=== PATIENT | male | born 1975 | race Caucasian/White ===

== ENCOUNTER → 2016-06-10 | Outpatient (CLI) | payer OTHER, BC ==
--- NOTE | 2016-06-10 15:47 | CR ---
EXAMINATION: Right knee HISTORY: Pain COMPARISON: 05/17/2016 TECHNIQUE: 4 views FINDINGS/IMPRESSION: There is no acute osseous abnormality, dislocation, or fracture identified. Bon e mineralization and joint spaces appear normal. No soft tissue swelling or joint effusion.
== END ==
LOC: MW.CHORTHO 07:45
PROVIDERS: ATTEND Physician Assistant
DX: M25.561 Pain in right knee (principal)
CPT/HCPCS: 73564-26-RT; 73564-RT

== ENCOUNTER 2016-08-12 07:47 | Day surgery (SDC) | payer OTHER ==
[~2016-08-12 07:47] MED LIST: Lactated Ringers 1,000 ML IV SCH; Lidocaine 1% 50 ML MDV ONE
[2016-08-12] MEDS ORDERED: ceFAZolin 2 GM in Premix Bag 1 BAG IV SCH (08:00)
[2016-08-12] MEDS ORDERED: Acetaminophen/HYDROcodone 325-5 MG Tab PO PRN (09:00)
[2016-08-12] MEDS ORDERED: Propofol 200 MG/20 ML SDV ONE (09:05)
[2016-08-12] MEDS ORDERED: Lidocaine 2% 5 ML SDV ONE (09:05)
[2016-08-12] MEDS ORDERED: fentaNYL 100 MCG/2 ML SDV ONE ×2 (09:06→10:05)
[2016-08-12] MEDS ORDERED: Midazolam 1 MG/ML 2 ML SDV ONE (09:06)
--- NOTE | 2016-08-12 09:15 | PCM.PREANE ---
Preanesthetic Assessment - Anesthesia/Transfusion/Family Hx Anesthesia History: No Prior Anesthesia Family History of Anesthesia Reaction: No Transfusion History: No Prior Transfusion(s) Intubation History: Unknown - Review of Systems General: No Symptoms Pulmonary: No Symptoms Cardiovascular: No Symptoms Gastrointestinal: No symptoms Neurological: No Symptoms Other: Reports: None - Physical Assessment NPO Status Date: 08/11/16 NPO Status Time: 23:45 O2 Sat by Pulse Oximetry: 94 Respiratory Rate: 16 Vital Signs: Last Vital Signs Temp 36.6 C 08/12/16 08:27 Pulse 82 08/12/16 08:27 Resp 16 08/12/16 08:27 BP 120/87 08/12/16 08:27 Pulse Ox 94 L 08/12/16 08:27 Height: 1.83 m Weight: 102.058 kg ASA Class: 2 Mental Status: Alert & Oriented x3 Airway Class: Mallampati = 2 Dentition: Reports: Normal Dentition Thyro-Mental Finger Breadths: 3 Mouth Opening Finger Breadths: 3 ROM/Head Extension: Full Lungs: Clear to auscultation, Normal respiratory effort Cardiovascular: Regular Rate, Regular Rhythm - Allergies Allergies/Adverse Reactions: Allergies Allergy/AdvReac Type Severity Reaction Status Date / Time diclofenac Allergy Hives Verified 08/08/16 09:35 - Blood Blood Available: No - Anesthesia Plan Pre-Op Medication Ordered: None - Acknowledgements Anesthesia Type Planned: General Anesthesia Pt an Appropriate Candidate for the Planned Anesthesia: Yes Alternatives and Risks of Anesthesia Discussed w Pt/Guardian: Yes Pt/Guardian Understands and Agrees with Anesthesia Plan: Yes PreAnesthesia Questionnaire - Past Health History Medical/Surgical History: Denies Medical/Surgical History Gastrointestinal History: Reports: Other (see below) Other Gastrointestinal History: occasional heartburn Endocrine/Metabolic History: Reports: Obesity/BMI 30+ - Past Surgical History Head Surgeries/Procedures: Reports: None - SUBSTANCE USE Smoking Status *Q: Current Every Day Smoker (04/10 ppd) Tobacco Use Within Last Twelve Months: Cigarettes, Snuff/Dip Recreational Drug Use History: No - HOME MEDS Home Medications: Home Meds . [No Known Home Meds] 08/08/16 [History] - CURRENT (IN HOUSE) MEDS Current Meds: Current Medications Hydrocodone Bitart/Acetaminophen (Engelhard 325-5 Mg) 1 - 2 tab PO Q4H PRN PRN Reason: Pain Lactated Ringer's (Ringers, Lactated) 1,000 mls @ 100 mls/hr IV ASDIRECTED TYLER Last Admin: 08/12/16 08:15 Dose: 100 mls/hr Cefazolin Sodium/Dextrose 2 gm (/ Premix) 50 mls @ 100 mls/hr IV ONCALL TYLER Discontinued Medications Fentanyl (Sublimaze) Confirm Administered Dose 100 mcg .ROUTE .STK-MED ONE Stop: 08/12/16 09:07 Lidocaine (Xylocaine-Mpf 2%) Confirm Administered Dose 5 ml .ROUTE .STK-MED ONE Stop: 08/12/16 09:06 Lidocaine HCl (Xylocaine 1%) Confirm Administered Dose 50 ml .ROUTE .STK-MED ONE Stop: 08/12/16 07:26 Midazolam HCl (Versed 1 Mg/Ml) Confirm Administered Dose 2 mg .ROUTE .STK-MED ONE Stop: 08/12/16 09:07 Propofol (Diprivan 20 Ml) Confirm Administered Dose 200 mg .ROUTE .STK-MED ONE Stop: 08/12/16 09:06
[2016-08-12] MEDS ORDERED: Ondansetron 4 MG/2 ML SDV ONE (10:08)
[2016-08-12] MEDS ORDERED: Ketorolac 30 MG/ML SDV ONE (10:08)
[2016-08-12] MEDS ORDERED: fentaNYL 100 MCG/2 ML SDV IVPUSH PRN (10:13)
--- NOTE | 2016-08-12 10:45 | PCM.OPNOTE ---
- General Post-Op/Procedure Note Date of Surgery/Procedure: 08/12/16 Operative Procedure(s): R knee scope with limited synovectomy Post-Op Diagnosis: R knee fat pad impingement Primary Surgeon: Rosette Rick EBL in mLs: 5 Condition: Good Free Text/Narrative:: tt=9 min #[id number]
--- NOTE | 2016-08-12 11:02 | PCM.POSTAN ---
POST ANESTHESIA ASSESSMENT - MENTAL STATUS Mental Status: alert, oriented - RESPIRATORY Respiratory Status: respiratory rate WNL, airway patent, O2 saturation stable - CARDIOVASCULAR CV Status: pulse rate WNL, blood pressure stable - GASTROINTESTINAL GI Status: no symptoms - POST OP HYDRATION Hydration Status: adequate & stable
[2016-08-12 12:15] VITALS: BP 125/90
--- NOTE | 2016-08-12 20:37 | OR ---
SURGEON: Rosette Rick MD DATE OF PROCEDURE: 08/12/2016 PREOPERATIVE DIAGNOSIS: Right knee pain. POSTOPERATIVE DIAGNOSIS: Right knee fat pad impingement. PROCEDURE: Right knee arthroscopy with limited synovectomy (partial excision of the infrapatellar fat pad). CROP NUTRITION SCIENTIST: Alyson Pennington RN. ANESTHESIA: General. ESTIMATED BLOOD LOSS: 5 mL. TOURNIQUET TIME: 9 minutes. COMPLICATIONS: None. DVT PROPHYLAXIS: Not indicated. IMPLANTS USED: None. BRIEF HISTORY: Octavio is a 40-year-old male, who has had complaint of progressive right knee pain. An MRI did show truncation of the medial meniscus along with an MCL sprain. He has had a good trial of conservative treatment with continued pain in the knee. He did respond to a diagnostic/therapeutic injection for a short time. Due to his lack of response to conservative treatment, I did recommend surgical intervention. The risks and goals of procedure were discussed with the patient and were documented preoperatively. He agreed to proceed. DESCRIPTION OF PROCEDURE: The patient was properly identified and brought to the operating room. He was transferred from the OR cart and placed on the operating table in supine position. General anesthesia was administered. After adequate anesthesia was obtained, a well-padded tourniquet was applied to the right lower extremity. The right lower extremity was then prepped in standard fashion using ChloraPrep solution. It was then sterilely draped. A time-out was performed to ensure correct site and procedure. Preoperative antibiotics were given. The surgical site had been marked preoperatively. The knee did show good stability with varus and valgus stressing and negative pivot shift was noted. The right lower extremity was then exsanguinated with an Esmarch. The tourniquet was inflated to 250 mmHg. A lateral portal arthrotomy was established. Blunt trocar and cannula were introduced into the suprapatellar pouch. Camera, inflow, and outflow were assembled. No significant synovitis was noted. The patellofemoral joint was visualized. No degenerative changes were noted. It was noted with approximately 30 degrees of flexion of the fat pad did impinge within the patellofemoral joint. I then extended down the lateral and medial gutter. No loose bodies were identified. I then entered the medial compartment. A medial portal arthrotomy was established. A blunt probe was inserted. The meniscus was extensively probed. No tearing was noted. The joint surfaces showed no degenerative findings. I then entered the notch. Both the ACL and PCL were visualized and probed and found to be stable. I entered the lateral compartment. The meniscus showed no signs of tearing. It was probed and found to be stable. The joint surfaces showed minor softening consistent with grade 1 chondromalacia only. I then re-entered the patellofemoral joint. A shaver was used to resect a portion of the fat pad. No further impingement was noted with flexion of the knee. Instruments were then removed from the knee. The portal sites were closed with 4-0 nylon. Lidocaine 1% was injected along the portal tracts. Xeroform gauze was placed over the wound and a bulky dressing was applied. The tourniquet was then deflated. He was awakened from his anesthesia and transferred back to the operating room cart. He was brought to recovery room in stable condition. All needle and sponge counts were correct. BEATA / KEIRA /[id number]
== END 2016-08-12 11:48 | disposition home or self-care (01) ==
LOC: MW.SDS 07:47
PROVIDERS: ATTEND Orthopaedic Surgery
PROC: 0SBC4ZZ Excision of Right Knee Joint, Percutaneous Endoscopic Approach (ICD-10-PCS; principal; 2016-08-12)
DX: M79.4 Hypertrophy of (infrapatellar) fat pad (principal); M65.861 Other synovitis and tenosynovitis, right lower leg; M25.861 Other specified joint disorders, right knee; M17.11 Unilateral primary osteoarthritis, right knee; F17.210 Nicotine dependence, cigarettes, uncomplicated; E66.9 Obesity, unspecified; Z88.6 Allergy status to analgesic agent; Z68.30 Body mass index [BMI] 30.0-30.9, adult
CPT/HCPCS: 29875; 88304; A9270; J0690; J1885; J2250; J2405; J3010; J7120; 01400; J2704

== ENCOUNTER 2021-01-13 10:47 | Emergency (ER) | payer OTHER ==
--- NOTE | 2021-01-13 11:35 | EDM.PDOC ---
ED HPI GENERAL MEDICAL PROBLEM - General Chief Complaint: General Stated Complaint: TESTED POS FOR COVID Time Seen by Provider: 01/13/21 11:34 - History of Present Illness INITIAL COMMENTS - FREE TEXT/NARRATIVE: History of present illness: [] This 45-year-old with no history of asthma or bronchitis says he has cough and shortness of breath. It is getting worse. He is symptomatic since 03 January and was diagnosed COVID-19 on the swab done 03 January. He did not get monoclonal antibodies. He has not been vaccinated. This patient was seen and evaluated during the 2019 SARS-CoV-2 novel coronavirus pandemic period. Community viral transmission is ongoing at time of this encounter and the emergency department is operating under pandemic response procedures. Review of systems: As per history of present illness and below otherwise all systems reviewed and negative. Past medical history: As per history of present illness and as reviewed below otherwise noncontributory. Surgical history: As per history of present illness and as reviewed below otherwise noncontributory. Social history: No reported history of drug or alcohol abuse. Family history: As per history of present illness and as reviewed below otherwise noncontributory. Physical exam: Constitutional - well developed, well-nourished and in no acute distress HEENT - normocephalic, no evidence of trauma - external nose and mouth normal - no mass in neck and no JVD - mucosae moist EYES - full EOM, PERRL, no icterus - no evidence of inflammation, injection, or drainage Respiratory -mild respiratory distress, equal bilateral expansion, lungs clear without wheezing. Slightly prolonged expiratory phase and noxious cough when he takes a deep breath. Oxygen saturation 94 to 95% on room air. Patient has oxygen saturation lowest 93% on exertion. Cardiovascular - Regular Rhythm with S1 and S2 appreciated and no murmur, gallop or rub. GI - abdomen soft without distension or organomegaly - normal bowel sounds - no guard or rebound Musculoskeletal no gross deformity of long bones or joints - no tenderness, swelling or edema Neurologic - Alert and oriented times four - CN II-XII grossly intact - motor sensory and coordination symmetrically normal Psychiatric - appropriate mood and affect with normal thought content Hematologic - No petechiae or purpura - mucosa appropriate color and sclera not pale - normal nail bed color and refill Integument - no rash or evidence of trauma - normal turgor Diagnostics: [] Therapeutics: [] Impression: [] Plan: [] Definitive disposition and diagnosis as appropriate pending reevaluation and review of above. - Related Data Allergies Allergy/AdvReac Type Severity Reaction Status Date / Time diclofenac Allergy Hives Verified 08/08/16 09:35 Home Meds: Home Meds . [No Known Home Meds] 01/13/21 [History] Past Medical History - Past Health History Medical/Surgical History: Denies Medical/Surgical History Gastrointestinal History: Reports: Other (See Below) Other Gastrointestinal History: occasional heartburn Endocrine/Metabolic History: Reports: Obesity/BMI 30+ - Past Surgical History Head Surgeries/Procedures: Reports: None ED ROS GENERAL - Review of Systems Review Of Systems: Comprehensive ROS is negative, except as noted in HPI. ED EXAM, GENERAL - Physical Exam Exam: See Below Free Text/Narrative:: My physical exam is in the HPI Course - Vital Signs Text/Narrative:: 12:18 PM patient's x-ray shows pneumonia consistent with Covid. Is bilateral. It does not appear like a bacterial lobar pneumonia. Its not severe compared to many of the Covid x-rays which seen in patients are maintained as an outpatient. He is not hypoxic. There is really nothing to offer him to expedit e his recovery. Last Recorded V/S: Last Vital Signs Temp 36.3 C 01/13/21 11:28 Pulse 68 01/13/21 11:28 Resp 20 01/13/21 11:28 BP 134/87 01/13/21 11:28 Pulse Ox 94 L 01/13/21 11:28 - Orders/Labs/Meds Orders: Active Orders 24 hr Category Date Time Status Chest 1V Frontal [CR] Stat Exams 01/13/21 11:56 Taken Departure - Departure Time of Disposition: 12:18 Disposition: Home, Self-Care 01 Condition: Good Clinical Impression: Pneumonia due to COVID-19 virus - Discharge Information Instructions: COVID-19 Vaccine Information, COVID-19 Frequently Asked Questions, 10 Things You Can Do to Manage Your COVID-19 Symptoms at Home - [facility] (10/20/2020), COVID-19: Quarantine vs. Isolation - [facility] (03/23/2020), COVID-19: What to Do If You Are Sick- [facility] (06/21/2020) Referrals: PCP,None [Primary Care Provider] - Forms: ED Department Discharge Additional Instructions: Your symptoms are lasted too long to be a candidate for monoclonal antibodies. When you recover you should consider vaccination. Drink plenty fluids use [id number] medicine for pain and symptoms. [facility] - Primary Care [address] [place] [id number] [facility] [address] [place] [id number] The following information is given to patients seen in the emergency department who are being discharged to home. This information is to outline your options for follow-up care. We provide all patients seen in our emergency department with a follow-up referral. The need for follow-up, as well as the timing and circumstances, are variable depending upon the specifics of your emergency department visit. If you don't have a primary care physician on staff, we will provide you with a referral. We always advise you to contact your personal physician following an emergency department visit to inform them of the circumstance of the visit and for follow-up with them and/or the need for any referrals to a consulting specialist. The emergency department will also refer you to a specialist when appropriate. This referral assures that you have the opportunity for follow-up care with a specialist. All of these measure are taken in an effort to provide you with optimal care, which includes your follow-up. Under all circumstances we always encourage you to contact your private physician who remains a resource for coordinating your care. When calling for follow-up care, please make the office aware that this follow-up is from your recent emergency room visit. If for any reason you are refused follow-up, please contact the [facility] Emergency Department at and asked to speak to the emergency department charge nurse. Sepsis Event Note (ED) - Focused Exam Vital Signs: Vital Signs Temp Pulse Resp BP Pulse Ox 01/13/21 11:28 36.3 C 68 20 134/87 94 L - My Orders Last 24 Hours: My Active Orders 01/13/21 11:56 Chest 1V Frontal [CR] Stat - Assessment/Plan Last 24 Hours: My Active Orders 01/13/21 11:56 Chest 1V Frontal [CR] Stat
--- NOTE | 2021-01-13 12:29 | CR ---
INDICATION: Cough, dyspnea. TECHNIQUE: Portable AP chest. COMPARISON: None available. FINDINGS: Low lung volumes with vascular crowding. Mild patchy opacities involving the right greater than left mid and lower lungs. No pneumothorax or pleural effusion. Normal cardiac size. IMPRESSION: Mild patchy lower lung predominant passes are nonspecific but suspicious for COVID-19. Dictated by Darshan Fraser MD @ 01/13/2021 12:28:35 PM Dictated by: Darshan Fraser MD @ 01/13/2021 12:28:42 (Electronically Signed)
[2021-01-13 12:33] VITALS: BP 146/97; PULSE 66
== END 2021-01-13 12:33 | disposition home or self-care (01) ==
LOC: MW.ED 10:47
DX: U07.1 COVID-19 (principal); J12.82 Pneumonia due to coronavirus disease 2019; E66.9 Obesity, unspecified; Z68.21 Body mass index [BMI] 21.0-21.9, adult; Z88.8 Allergy status to other drugs, medicaments and biological substances
CPT/HCPCS: 71045; 71045-26; 99284-25